=== PATIENT | female | born 1990 | race Caucasian/White ===

== ENCOUNTER 2018-08-18 08:10 | Emergency (ER) | payer BC ==
--- OUTSIDE RECORDS SUMMARY | 2018-08-18 08:28 | XMS REPORT ---
:1990 Author Organization Lalit Rae [facility] Care Team Providers Name Role Phone Eneida Webb Unavailable Unavailable PROBLEMS Unknown Problems ALLERGIES Substance Reaction Event Type Date Status seasonal Unknown Non Drug Allergy Jun, Active ENCOUNTERS Encounter Location Date Diagnosis [address] [address] Dec, [address] [address] Dec, [address] [address] Jun, [address] [address] Jun, IMMUNIZATIONS No Known Immunizations SOCIAL HISTORY Never Assessed REASON FOR REFERRAL FUNCTIONAL STATUS PLAN OF CARE VITAL SIGNS MEDICATIONS Unknown Medications PROCEDURES Procedure Date Ordered Result Body Site PROPHYLAXIS - ADULT 13yrs and older Jun 24, 2018 RESULTS No Results REASON FOR VISIT cleaning Insurance Providers [facility] Member Patient Patient Patient Patient Patient Subscriber Subscriber Subscriber Group Insurance Plan Plan Plan Plan ID Relationship Address Phone Name Date of ID Name Date of No Type Insurance Insurance Insurance Coverage to Subscriber Address Phone Name Dates LifetimeBe [phone] LifetimeBe [id number] Starla [id number] nefitSolut Amy 16 nefitSolut [id number] [place] 4 ions [place] ions :[id number]: Dental Par [address] Dental Par [address] Guardian [phone] Guardian self Starla [id number] [id number] [id number] [place] [phone] ing MEDICAL (GENERAL) HISTORY Type Description Date Medical History as per pt. she's in good health
--- OUTSIDE RECORDS SUMMARY | 2018-08-18 08:28 | XMS REPORT ---
:1990 Author Organization [facility] Care Team Providers Name Role Phone Michael Issa Unavailable Unavailable PROBLEMS Unknown Problems ALLERGIES Substance Reaction Event Type Date Status seasonal Unknown Non Drug Allergy Jun, Active ENCOUNTERS Encounter Location Date Diagnosis [address] [address] Dec, [address] Dec, [address] [address] Jun, [address] [address] Jun, IMMUNIZATIONS No Known Immunizations SOCIAL HISTORY Never Assessed REASON FOR REFERRAL FUNCTIONAL STATUS PLAN OF CARE VITAL SIGNS MEDICATIONS Unknown Medications PROCEDURES Procedure Date Ordered Result Body Site COMP ORAL EVAL- NEW EST PT Jun 24, 2018 BITEWINGS - FOUR FILMS Jun 24, 2018 PANORAMIC FILM SEE ALSO CODE [id number] Jun 24, 2018 RESULTS No Results REASON FOR VISIT Insurance Providers [facility] Health Member Patient Patient Patient Patient Patient Subscriber Subscriber Subscriber Group Insurance Plan Plan Plan Plan ID Relationship Address Phone Name Date of ID Name Date of No Type Insurance Insurance Insurance Coverage to Subscriber Address Phone Name Dates LifetimeBe [phone] LifetimeBe [id number] Starla [id number] nefitSolut Amy 16 nefitSolut [id number] [address] 4 ions [place] ions :[id number]: Dental Par [address] Dental Par [address] Guardian [phone] Guardian self Starla [id number] [phone] [id number] [id number] [place] [phone] ing MEDICAL (GENERAL) HISTORY Type Description Date Medical History as per pt. she's in good health
[2018-08-18 09:09] LABS: ABS Basophils 0 10^3/ul (0-0.2); ABS Eosinophils 0.1 10^3/ul (0-0.6); ABS Lymphocytes 2.5 10^3/ul (1.0-4.8); ABS Monocytes 0.4 10^3/ul (0-0.8); ABS Neutrophils 3.2 10^3/ul (1.5-7.7); ABS Nucleated RBC 0 10^3/ul; Eosinophil % 1.8 % (0-6); Hematocrit 42 % (35-47); Hemoglobin 14.7 g/dl (12.0-16.0); Lymphocyte % 40.1 % (25-47); Mean Corpuscular HGB Conc 35 g/dl (31-36); Mean Corpuscular Hemoglobin 31 pg (27-31); Mean Corpuscular Volume 89 fL (80-97); Mean Platelet Volume 8.2 um3 (7.4-10.4); Nucleated Red Blood Cells % 0.3; Platelet Count 244 10^3/ul (150-450); Red Blood Count 4.74 10^6/ul (4.00-5.40); Red Cell Distribution Width 13 % (10.5-15); White Blood Count 6.2 10^3/ul (3.5-10.8)
[2018-08-18 09:31] LABS: EGFR Non-African American 86.7 (>60)
[2018-08-18 09:50] VITALS: BP 133/67
--- NOTE | 2018-08-18 13:17 | ED ---
Syncope/Near Syncope - HPI Summary HPI Summary: Pt. is a 28 y.o female who presents to the ER after a syncopal episode while having blood drawn just prior to arrival. Pt. states she was having routine blood drawn for a test and thyroid levels. Pt. states she was fasting for the labs. Pt. states she has syncopized from getting blood work before. Patient states she currently felt that was a still. She denies chest pain, shortness of breath, recent illness, cough, shortness of breath, abdominal pain , vomiting, diarrhea, urinary symptoms. Symptoms are mild in severity. No current modifying factors. Pt. denies personal or family heart history. - History Of Current Complaint Chief Complaint: EDSyncope Time Seen by Provider: 08/18/18 08:13 Hx Obtained From: Patient - Allergies/Home Medications Allergies/Adverse Reactions: Allergies Allergy/AdvReac Type Severity Reaction Status Date / Time No Known Allergies Allergy Verified 08/18/18 08:12 Home Medications: Home Medications NK [No Home Medications Reported] 08/18/18 [History Confirmed 08/18/18] PMH/Surg Hx/FS Hx/Imm Hx Previously Healthy: Yes Infectious Disease History: Unable to Obtain/Confirm Infectious Disease History: Denies: Traveled Outside the [place] in Last 30 Days - Social History Alcohol Use: Occasionally Substance Use Type: Reports: None Smoking Status (MU): Never Smoked Tobacco Review of Systems Constitutional: Negative Eyes: Negative ENT: Negative Cardiovascular: Negative Negative: Palpitations, Chest Pain Respiratory: Negative Negative: Shortness Of Breath, Cough Gastrointestinal: Negative Negative: Abdominal Pain, Vomiting, Diarrhea Genitourinary: Negative Neurological: Negative All Other Systems Reviewed And Are Negative: Yes Physical Exam Triage Information Reviewed: Yes Vital Signs On Initial Exam: Initial Vitals Temp Pulse Resp BP Pulse Ox 97.8 F 73 16 121/76 95 08/18/18 08:12 08/18/18 08:12 08/18/18 08:12 08/18/18 08:12 08/18/18 08:12 Vital Signs Reviewed: Yes Appearance: Positive: Well-Appearing - Pt. sitting in bed in NAD. Skin: Positive: Warm, Dry Head/Face: Positive: Normal Head/Face Inspection Eyes: Positive: Normal, EOMI Neck: Positive: Supple Respiratory/Lung Sounds: Positive: Clear to Auscultation, Breath Sounds Present Cardiovascular: Positive: Normal, RRR Neurological: Positive: Normal, CN Intact II-III Psychiatric: Positive: Affect/Mood Appropriate Diagnostics - Vital Signs Vital Signs Temp Pulse Resp BP Pulse Ox 08/18/18 09:50 97.9 F 75 16 133/67 98 08/18/18 08:12 97.8 F 73 16 121/76 95 - Laboratory Lab Results: Lab Results 08/18/18 08/18/18 Range/Units 08:55 08:55 WBC 6.2 (3.5-10.8) 10^3/ul RBC 4.74 (4.00-5.40) 10^6/ul Hgb 14.7 (12.0-16.0) g/dl Hct 42 (35-47) % MCV 89 (80-97) fL MCH 31 (27-31) pg MCHC 35 (31-36) g/dl RDW 13 (10.5-15) % Plt Count 244 (150-450) 10^3/ul MPV 8.2 (7.4-10.4) um3 Neut % (Auto) 51.7 (38-83) % Lymph % (Auto) 40.1 (25-47) % Bertie % (Auto) 5.8 (0-7) % Eos % (Auto) 1.8 (0-6) % Baso % (Auto) 0.6 (0-2) % Absolute Neuts (auto) 3.2 (1.5-7.7) 10^3/ul Absolute Lymphs (auto) 2.5 (1.0-4.8) 10^3/ul Absolute Monos (auto) 0.4 (0-0.8) 10^3/ul Absolute Eos (auto) 0.1 (0-0.6) 10^3/ul Absolute Basos (auto) 0 (0-0.2) 10^3/ul Absolute Nucleated RBC 0 10^3/ul Nucleated RBC % 0.3 Sodium 140 (135-145) mmol/L Potassium 4.1 (3.5-5.0) mmol/L Chloride 108 (101-111) mmol/L Carbon Dioxide 25 (22-32) mmol/L Anion Gap 7 (2-11) mmol/L BUN 11 (6-24) mg/dL Creatinine 0.79 (0.51-0.95) mg/dL Est GFR ( Amer) 104.9 (>60) Est GFR (Non-Af Amer) 86.7 (>60) BUN/Creatinine Ratio 13.9 (8-20) Glucose 91 (70-100) mg/dL Calcium 9.2 (8.6-10.3) mg/dL Total Bilirubin 0.50 (0.2-1.0) mg/dL AST 15 (13-39) U/L ALT 20 (7-52) U/L Alkaline Phosphatase 91 (34-104) U/L Total Protein 6.9 (6.4-8.9) g/dL Albumin 4.1 (3.2-5.2) g/dL Globulin 2.8 (2-4) g/dL Albumin/Globulin Ratio 1.5 (1-3) Beta HCG, Quant < 0.60 mIU/mL Result Diagrams: 08/18/18 08:55 08/18/18 08:55 Lab Statement: Any lab studies that have been ordered have been reviewed, and results considered in the medical decision making process. Course/Dx Course Of Treatment: Patient presenting to the ER after a syncopal episode. She is afebrile with stable vital signs. ECG done at 0838 shows a sinus rhythm of 78 bpm, normal axis, appropriate intervals, no ST elevation or depression. Basic blood work and are negative. Patient was given juice and is feeling better. Suspect vasovagal syncope. Pt. will be dc home. Advised to increases and rest. Change positions slowly. Close f.u with PCP and return to ER if sxs change or worsen. Pt. understands and agrees with plan. - Diagnoses Differential Diagnosis/HQI/PQRI: Positive: Hypoglycemia, Hypovolemia, Vasovagal Episode Provider Diagnoses: Vasovagal syncope Discharge - Sign-Out/Discharge Documenting (check all that apply): Patient Departure - Discharge Plan Condition: Good Disposition: HOME Patient Education Materials: Syncope (ED) Forms: *Work Release Referrals: Simran Carrizales MD [Primary Care Provider] - - Billing Disposition and Condition Condition: GOOD Disposition: Home
== END 2018-08-18 09:50 | disposition home or self-care (01) ==
LOC: ED 08:10
DX: R55 Syncope and collapse (principal)
CPT/HCPCS: 36415; 80053; 84702; 85025; 93005; 99283

== ENCOUNTER 2019-06-15 23:34 | Inpatient (IN) | payer BC ==
[2019-06-16 00:24] LABS: Urine Benzodiazepine Screen None Detected (None Detect); Urine Opiates Screen None Detected (None Detect)
[2019-06-16] MEDS ORDERED: Lactated Ringers 1000 ML Bag* 1,000 ML IV ONE (00:41)
[2019-06-16] MEDS ORDERED: Buffered Lidocaine 1% SYRIN* 1 ML/SYRINGE INTRADERM ONE (00:41)
--- NOTE | 2019-06-16 00:51 | HP ---
General Information - Reason for Visit Term in labor. Contractions since yesterday - General Information Maternal Age: 29 Grav: 1 Para: 0 SAB: 0 IEA: 0 Estimated Due Date: 06/14/19 Determined By: Early Ultrasound Maternal Blood Type and Rh: A Positive - Results this Serology/RPR Result: Non-Reactive Rubella Result: Non-Immune HBsAg Result: Negative HIV Result: Negative GBS Culture Result: Negative Past Medical History Delivery History: See Records Delivery History Comment: No previous pregnancies Pertinent Past Medical History: See Records - PCOS Pertinent Past Surgical History: None Pertinent Family History: See Records Family History Comment: Colon cancer diabetes skin cancer breast cancer lymphoma - Antepartal Records Antepartal Records: Reviewed, Complicated by: - rubella non-immune Review of Systems Constitutional: Uncomfortable CV Complaint: No Respiratory: Shortness of Breath: No Gastrointestinal: Normal Bowel Movement, Nausea Genitourinary: No Dysuria, No Bleeding, No Leaking Fluid Musculoskeletal: Contractions Neurological: No Headache, No Visual Changes Movement: Normal Exam Allergies/Adverse Reactions: Allergies No Known Allergies Allergy (Verified 06/15/19 23:57) BP 127/77 T 97.8 HR 102 RR 18 O2 100 Lab Values - Entire Visit: Laboratory Tests 06/15/19 23:50 Urine Opiates Screen None detected Ur Barbiturates Screen None detected Ur Phencyclidine Scrn None detected Ur Amphetamines Screen None detected U Benzodiazepines Scrn None detected Urine Cocaine Screen None detected U Cannabinoids Screen None detected - Measurements Height: 5 ft 5 in Weight: 204 lb Weight in lbs: 204.291790 Body Mass Index (BMI): 33.9 Pre- Weight: 175 lb 0.012 oz Weight Gained This : 28.999 lbs and 0.004 ozs - Exam Breast: Breast Exam Deferred CVA: No CVA Tenderness Extremities: No Edema Heart: Normal Rhythm/Heart Sounds HEENT: No Significant Findings Lungs: Clear Bilaterally Rectal: Rectal Exam Deferred Reflexes: DTR 2+, - - no clonus Thyroid: - - WNL @ entry to care - Abdominal Exam Abdomen Exam: Non-Tender, Fundal Height Consistent with Dates - Ultrasound/Biophysical Profile Ultrasound Status: Not Done Targeted Exam Findings Estimated Weight: 8lb Cervical Exam: 6cm - Exam by RN Effacement: 80% Station: -1, 0 Presenting Part: Vertex Membrane Status: Intact Bleeding/Discharge: None EFM Findings - External Monitor Findings Baseline Heart Rate: 145 External Monitor Findings: Accelerations Present, No Pattern of Variable or Late Decelerations, Variability Moderate Contractions: Regular, Moderate, 45-90 Seconds Contraction Frequency: Q 5-7 min Assessment/Plan - Assessment IUP @ 40+2 weeks gestation in active labor. IBOW. No evidence metabolic acidemia. - Plan Plan: Admit - Anticipate Vaginal Delivery Plan Comment: Admit to L&D. Patient coping well and declines any pain intervention but aware could opt for nitrous or epidural if desired. Will try hydrotherapy. Anticipate SVB. - Date/Time of Admission Date of Admission: 06/16/19 Time of Admission: 00:22
[2019-06-16] MEDS ORDERED: Lactated Ringers 1000 ML Bag* 1,000 ML IV SCH ×2 (01:00→06:00)
[2019-06-16] MEDS ORDERED: Acetaminophen TAB* 325 MG PO PRN (05:29)
[2019-06-16] MEDS ORDERED: Measles, Mumps,Rubella VACC* 0.5 ML/VIAL SUBCUT ONE (05:29)
[2019-06-16] MEDS ORDERED: Glycerin ADULT SUPP PR PRN (05:29)
--- NOTE | 2019-06-16 06:17 | PROCNOTE ---
[facility] OB: Delivery Note - Delivery A Date of : 06/16/19 Time of : 04:53 Bode Sex: Male - Tapia Score 1 Minute: 9 Score 5 Minutes: 9 Gestational Age in Weeks and Days at Delivery: 40 Weeks and 2 Days Delivery Method: Spontaneous Vaginal Labor: Spontaneous Did Patient attempt ?: N/A, No Previous Amniotic Fluid: Clear Estimated Blood Loss: 250 Anesthesia/Analgesia: None Delivered By: Eddie Oneil - Nursery Level of Nursery: Regular/Bedside - Perineum Perineal Injury: Perineal Laceration, 1st Degree Perineal Repair: By Delivering Practioner - Events Delivery Events of Note: None Apply - Additional Delivery Notes Additional Delivery Notes: Patient admitted with spontaneous active labor with quick progression to complete. Length of active labor 3'29", pushed 1 hr 2 min. Baby born OA to JAY @ 0453 with membrane intact until head out and shoulders following smoothly with maternal efforts. Loose body cord unwrapped after delivery. Cord doubly clamped and cut by FOB once pulsations ceased. Placenta delivered @ 0459 with gentle cord traction in [place] presentation. 3VC, calcifications noted, multi- lobed. Fundus firm to massage. Edematous cervix at introitus. Baby at breast to initiate . Mother and baby stable.
[2019-06-16] MEDS: Dibucaine 1% 28.35 GM TUBE PR PRN (07:19)
[2019-06-16] MEDS: Witch Hazel PAD* JAR TOPICAL PRN (07:19)
[2019-06-16] MEDS: Ibuprofen TAB* 600 MG PO PRN ×3 (07:19→21:37)
[2019-06-16] MEDS: Docusate CAP* 100 MG PO SCH ×3 (07:20→21:37)
[2019-06-17 06:37] LABS: Hematocrit 34 % (35-47); Hemoglobin 11.5 g/dL (12.0-16.0); Mean Corpuscular HGB Conc 34 g/dL (31-36); Mean Corpuscular Hemoglobin 31 pg (27-31); Mean Corpuscular Volume 90 fL (80-97); Mean Platelet Volume 8.1 fL (7.4-10.4); Platelet Count 265 10^3/uL (150-450); Red Blood Count 3.74 10^6 /uL (3.70-4.87); Red Cell Distribution Width 14 % (10-15); White Blood Count 18.5 10^3/uL (3.5-10.8)
[2019-06-17] MEDS: Ibuprofen TAB* 600 MG PO PRN ×3 (07:06→21:56)
[2019-06-17 07:23] LABS: ABS Basophils 0.1 10^3/ul (0-0.2); ABS Eosinophils 0.2 10^3/ul (0-0.6); ABS Lymphocytes 5.9 10^3/ul (1.0-4.8); ABS Neutrophils 11.2 10^3/ul (1.5-7.7); Eosinophil % 1.1 %; Lymphocyte % 32.2 %
[2019-06-17] MEDS ORDERED: Ferrous Gluconate TAB* 324 MG TAB PO SCH (09:00)
[2019-06-17] MEDS: Docusate CAP* 100 MG PO SCH ×3 (09:32→21:56)
--- NOTE | 2019-06-17 21:00 | PTEDU ---
Patient Name: ROBINA MENDOSA ROBINA MENDOSA selected video: Never Ever Shake a Baby to view on 06/17/2019 at 8:58:08 PM from [facility] [id number]
--- NOTE | 2019-06-17 21:09 | PTEDU ---
Patient Name: ROBINA MENDOSA ROBINA MENDOSA selected video: BBOB: Nurturing Your Gorgeous &Growing Baby by to view on 06/17/2019 at 9:07:20 PM from [email or web address]
--- NOTE | 2019-06-17 21:39 | PTEDU ---
Patient Name: ROBINA MENDOSA ROBINA MENDOSA selected video: BBOB: Bonding Through Infant Massage to view on 06/17/2019 at 9:37:0 2 PM from [email or web address]
[2019-06-17] MEDS: Dibucaine 1% 28.35 GM TUBE PR PRN (21:56)
[2019-06-17] MEDS: Witch Hazel PAD* JAR TOPICAL PRN (21:56)
[2019-06-18 08:24] VITALS: BP 125/69
[2019-06-18] MEDS: Docusate CAP* 100 MG PO SCH (10:01)
== END 2019-06-18 11:15 | disposition home or self-care (01) | DRG 560 ==
LOC: MCHOBOUT 23:34 → MCHOB 06-16 00:22
PROVIDERS: ADMIT Midwife; ATTEND Midwife
PROC: 10E0XZZ Delivery of Products of Conception, External Approach (ICD-10-PCS; principal; 2019-06-16)
PROC: 4A1HXCZ Monitoring of Products of Conception, Cardiac Rate, External Approach (ICD-10-PCS; 2019-06-16)
PROC: 0HQ9XZZ Repair Perineum Skin, External Approach (ICD-10-PCS; 2019-06-16)
DX: O48.0 Post-term pregnancy (principal); Z37.0 Single live birth; O70.0 First degree perineal laceration during delivery; O69.2XX0 Labor and delivery complicated by other cord entanglement, with compression, not applicable or unspecified; O43.193 Other malformation of placenta, third trimester; Z3A.40 40 weeks gestation of pregnancy
CPT/HCPCS: 36415; 80307; 85025; 85060; 90707; A9270-GY

== ENCOUNTER 2020-10-23 12:00 | Inpatient (IN) ==
[2020-10-23 16:39] LABS: Urine Benzodiazepine Screen None Detected (None Detect); Urine Cannabinoids Screen None Detected (None Detect)
[2020-10-23 18:09] LABS: Urine Opiates Screen None Detected (None Detect)
[2020-10-23] MEDS ORDERED: Lactated Ringers 1000 ml BAG 1,000 ML IV ONE (21:09)
[2020-10-23] MEDS ORDERED: Oxytocin in LR 20 UNITS/1,000 ML BAG IVPB SCH (22:00)
[2020-10-23] MEDS ORDERED: Lactated Ringers 1000 ml BAG 1,000 ML IV SCH (22:00)
[2020-10-23 22:30] LABS: ABS Basophils 0.1 10^3/ul (0-0.2); ABS Eosinophils 0.1 10^3/ul (0-0.6); ABS Lymphocytes 2.8 10^3/ul (1.0-4.8); ABS Monocytes 1.4 10^3/ul (0-0.8); ABS Neutrophils 14.6 10^3/ul (1.5-7.7); Eosinophil % 0.3 %; Hematocrit 38 % (35-47); Hemoglobin 12.7 g/dL (12.0-16.0); Mean Corpuscular HGB Conc 33 g/dL (31-36); Mean Corpuscular Hemoglobin 29 pg (27-31); Mean Corpuscular Volume 86 fL (80-97); Mean Platelet Volume 8.6 fL (7.4-10.4); Platelet Count 286 10^3/uL (150-450); Red Blood Count 4.43 10^6 /uL (3.70-4.87); Red Cell Distribution Width 14 % (10-15); White Blood Count 18.9 10^3/uL (3.5-10.8)
[2020-10-24] MEDS ORDERED: Tetan/Diph/Pertus SYR(Tdap) 0.5 ML SYR(BOOSTRIX) use SYR contains LATEX IM ONE ×2 (00:08→16:46)
[2020-10-24] MEDS ORDERED: Witch Hazel PAD JAR TOPICAL PRN (00:08)
[2020-10-24] MEDS ORDERED: Dibucaine 1% OINT 28.35 GM TUBE PR PRN (00:08)
[2020-10-24] MEDS ORDERED: Oxytocin in LR 20 UNITS/1,000 ML BAG IVPB SCH (00:10)
[2020-10-24] MEDS ORDERED: Lactated Ringers 1000 ml BAG 1,000 ML IV SCH (01:00)
[2020-10-24] MEDS ORDERED: Lidocaine 1% VIAL 10 MG/ML VIAL ONE (02:29)
[2020-10-24 09:51] LABS: ABS Basophils 0.1 10^3/ul (0-0.2); ABS Lymphocytes 3.5 10^3/ul (1.0-4.8); ABS Monocytes 1.5 10^3/ul (0-0.8); ABS Neutrophils 16.2 10^3/ul (1.5-7.7); Eosinophil % 0.1 %; Hematocrit 35 % (35-47); Hemoglobin 11.6 g/dL (12.0-16.0); Lymphocyte % 16.3 %; Mean Corpuscular HGB Conc 33 g/dL (31-36); Mean Corpuscular Hemoglobin 29 pg (27-31); Mean Corpuscular Volume 86 fL (80-97); Mean Platelet Volume 8.3 fL (7.4-10.4); Platelet Count 275 10^3/uL (150-450); Red Blood Count 4.06 10^6 /uL (3.70-4.87); Red Cell Distribution Width 15 % (10-15); White Blood Count 21.3 10^3/uL (3.5-10.8)
[2020-10-25 08:06] VITALS: BP 124/72
== END 2020-10-25 11:30 | disposition home or self-care (01) | DRG 560 ==
LOC: MCHOBOUT 12:00 → MCHOB 12:24
PROVIDERS: ADMIT Midwife; ATTEND Midwife